=== PATIENT | female | born 1975 | race Caucasian/White ===

== ENCOUNTER 2017-03-24 05:17 | Inpatient (IN) | payer OTHER ==
--- NOTE | 2017-03-22 12:44 | PREOPHP ---
DATE OF ADMISSION: 03/24/2017 HISTORY OF PRESENT ILLNESS: This is a 41-year-old female, 1 para 1. The patient has been seen by me in October of this year due to pelvic pain, lower abdominal pain, an ultrasound showing multiple fibroids. This patient had a history of an ablation but unsuccessful and still with pain and bleeding and very strong bleeding with menometrorrhagia. She has being unable to have intercourse due to pain. She had a history of a bilateral salpingectomy due to Essure applications and endometrial ablation. This patient underwent an ultrasound that had diagnosed her with multiple intramural uterine fibroids, endometrium was not visualized, normal left ovary and right ovary was not visualized. She had been treated with Lupron treatment to decrease the bleeding since she was bleeding so heavily that she was anemic. She was given Lupron injections to decrease the size of the uterus and she had been offered a hysterectomy. She is not interested in having more children. She wants to take care of her bleeding. She does not want this problem to come back in the future, and she had been happy with the injection of Lupron results. She was seeing me and she was advised for a hysterectomy. The patient had a history of no heart disease, no lung disease, no GI, no endocrine disease. She has seasonal allergies. No history of drug addiction. FAMILY HISTORY: For hypertension, breast cancer, strokes and diabetes. PHYSICAL EXAMINATION: GENERAL: Good. VITAL SIGNS: Blood pressure is 120/70, pulse is 80, she is afebrile, and she weighs 156. She is 5 foot 3 inch. HEENT: The head and neck is normal. BREASTS: Soft, nontender, no masses. CHEST: Clear. HEART: Normal sinus rhythm. BACK: Normal. ABDOMEN: Was soft, nontender, no masses. GENITALIA: Normal external genitalia. Normal vagina. Cervix is healthy. Uterus with multiple fibroids, about 10 weeks size, mobilization with prolapse, grade 2-3. Adnexa negative. RECTAL: Examination is normal. DIAGNOSES: 1. Intractable pelvic pain, possible endometriosis. 2. Intractable menometrorrhagia. 3. Multiple fibroid uterus. 4. Uterine prolapse status post endometrial ablation. PLAN: She is undergoing a hysterectomy, vaginal total hysterectomy versus total abdominal hysterectomy. This patient has been advised of the possible risks and possible complications of the procedure with her alternatives and options. Written information was provided. She had no more questions, and agreed to go ahead with the procedure with full understanding and no more questions. Procedure is vaginal total hysterectomy, possible JORDIN. She has been advised of the possible risks and possible complications of the procedure with her alternatives and options. Written information was provided. She had no more questions, and agreed to go ahead with the procedure with full understanding and no more questions. Dictated By: Lyndsey Villanueva MD /ralph/shaina /Document#: [id number]
[2017-03-23 17:16] VITALS: BMI 29.3
[~2017-03-24] VITALS: Ht 160 cm; Wt 74.1 kg
[2017-03-24] VITALS (24 sets, daily range): BP systolic 92–157; BP diastolic 55–89; PULSE 68–98; RESP 16–20; Ht 160 cm; Wt 74.1 kg
[2017-03-24] MEDS ORDERED: CEFAZOLIN 2 GM/50 ML (PMX) 50 ML IVPB ONE (06:00)
[2017-03-24] MEDS ORDERED: DEXTROSE 5%-LR 1,000 ML IV ONE (06:00)
[2017-03-24] MEDS ORDERED: LACTATED RINGER'S 1,000 ML IV SCH (08:00)
[2017-03-24] MEDS ORDERED: METOCLOPRAMIDE 10 MG INJ IV PRN (08:30)
[2017-03-24] MEDS ORDERED: ONDANSETRON 4 MG INJ IV PRN (08:30)
[2017-03-24] MEDS ORDERED: HYDROmorphONE (0.2 MG/ML) 10ML SYG IV PRN ×3 (08:30)
[2017-03-24] MEDS ORDERED: MEPERIDINE 25 MG INJ IV PRN (08:30)
[2017-03-24] MEDS ORDERED: DIPHENHYDRAMINE 50 MG INJ IV PRN (08:30)
[2017-03-24] MEDS ORDERED: BUPIVACAINE 0.25%/EPI (SDV) 30 ML INJ INJ ONE (09:11)
--- NOTE | 2017-03-24 09:58 | HPN ---
Date/Time of Note Date/Time of Note DATE: 03/24/17 TIME: 09:58 Interval H&P Admission Note Pt. seen H&P reviewed: No system changes ASIM KINNEY MD Mar 24, 2017 09:58
[2017-03-24] MEDS ORDERED: HYDROCODONE/APAP (5/325) TAB PO PRN ×2 (10:00)
[2017-03-24] MEDS: KETOROLAC 30 MG INJ IV SCH ×4 (10:00→21:24)
[2017-03-24] MEDS ORDERED: BISACODYL (EC) 5 MG TAB PO PRN (10:00)
[2017-03-24] MEDS ORDERED: ZOLPIDEM 5 MG TAB PO PRN (10:00)
[2017-03-24] MEDS ORDERED: DIPHENHYDRAMINE 50 MG CAP PO PRN (10:00)
--- NOTE | 2017-03-24 10:06 | OPR ---
Date/Time of Note Date/Time of Note DATE: 03/24/17 TIME: 10:02 Operative Report Procedure Date: Mar 24, 2017 Preoperative Diagnosis INTRACTABLE MENOMETRORRHAGIA AND PELVIC PAIN MULTIPLE FIBROID UTERUS POST ABLATION STATUS POSSIBLE ENDOMETRIOSIS Postoperative Diagnosis SAME Operation Performed VAGINAL TOTAL HYSTERECTOMY UTERINE FIBROID MORCELATION Surgeon: ASIM KINNEY MD Regulatory Affairs Specialist: MIKHAIL LOVE MD Anesthesia: general Anesthesiologist: SHEN DOHERTY MD Estimated Blood Loss: 10 - 50 ml's Specimens UTERUS AND FIBROIDS Complications: None Pt Condition Post Procedure: stable Disposition: PACU ASIM KINNEY MD Mar 24, 2017 10:06
[2017-03-24] MEDS: METOCLOPRAMIDE 10 MG TAB PO SCH ×2 (12:06→19:08)
[2017-03-24] MEDS: HYDROmorphONE 1 MG/ML SYG IV PRN ×3 (12:14→19:08)
[2017-03-24] MEDS: LACTATED RINGER'S 1,000 ML IV SCH ×2 (12:32→17:54)
[2017-03-24] MEDS ORDERED: ALBUTEROL/IPRATROPIUM (NEB) 3 ML AMP HHN PRN (13:30)
[2017-03-24] MEDS: CEFAZOLIN 1 GM/50 ML (PMX) 50 ML IVPB SCH ×2 (15:56→21:23)
[2017-03-24] MEDS ORDERED: PROPOFOL 20 ML ONE ×2 (18:03)
[2017-03-24] MEDS ORDERED: SUCCINYLCHOLINE CHLORIDE 100 MG/5 ML SYG IV ONE (18:03)
[2017-03-24] MEDS ORDERED: ONDANSETRON 4 MG INJ ONE (18:03)
[2017-03-24] MEDS ORDERED: CEFAZOLIN 1 GM INJ ONE (18:03)
[2017-03-24] MEDS ORDERED: morphine SULFATE/PF (10 MG/10 ML) INJ ONE (18:03)
[2017-03-24] MEDS ORDERED: BUPIVACAINE 0.25%/EPI (SDV) 30 ML INJ ONE (18:03)
[2017-03-24] MEDS ORDERED: MIDAZOLAM 1 MG/ML 2 ML INJ ONE (18:03)
[2017-03-24] MEDS ORDERED: KETOROLAC 30 MG INJ ONE (18:03)
[2017-03-24] MEDS ORDERED: FENTAnyl 50 MCG/ML VIAL ONE (18:03)
[2017-03-24] MEDS ORDERED: METOCLOPRAMIDE 10 MG INJ ONE (18:03)
[2017-03-24] MEDS ORDERED: THROMBIN 5000 UNIT VIAL ONE (18:03)
[2017-03-25] MEDS: LACTATED RINGER'S 1,000 ML IV SCH ×2 (00:05→08:28)
[2017-03-25] MEDS: METOCLOPRAMIDE 10 MG TAB PO SCH ×5 (00:05→22:40)
[2017-03-25] MEDS: KETOROLAC 30 MG INJ IV SCH ×4 (04:01→22:40)
[2017-03-25] MEDS: CEFAZOLIN 1 GM/50 ML (PMX) 50 ML IVPB SCH (05:07)
[2017-03-25 05:31] LABS: BASOPHILS % 0.2 % (0.0-2.0); EOSINOPHILS % 0.1 % (0.0-7.0); HEMATOCRIT 35.6 % (37.0-47.0); HEMOGLOBIN 11.8 g/dl (12.0-16.0); LYMPHOCYTES # 2.2 10^3/ul (0.8-2.9); LYMPHOCYTES % 21.2 % (15.0-51.0); MEAN CORPUSCULAR HEMOGLOBIN 29.1 pg (29.0-33.0); MEAN CORPUSCULAR HGB CONC 33.1 g/dl (32.0-37.0); MEAN CORPUSCULAR VOLUME 87.7 fl (82.0-101.0); MEAN PLATELET VOLUME 10.8 fl (7.4-10.4); MONOCYTE # 0.9 10^3/ul (0.3-0.9); MONOCYTES % 8.6 % (0.0-11.0); NEUTROPHIL # 7.4 10^3/ul (1.6-7.5); NEUTROPHILS % 69.6 % (39.0-77.0); PLATELET COUNT 178 10^3/UL (140-415); RED BLOOD COUNT 4.06 10^6/ul (4.20-5.40); RED CELL DISTRIBUTION WIDTH 12.9 % (11.5-14.5); WHITE BLOOD COUNT 10.6 10^3/ul (4.8-10.8)
[2017-03-25 06:27] LABS: CREATININE 0.79 mg/dl (0.44-1.00); POTASSIUM 4.8 mmol/L (3.5-5.1)
--- NOTE | 2017-03-25 07:37 | OPR ---
DATE OF OPERATION: 03/26/2017 OPERATIVE PROCEDURE: Vaginal hysterectomy, uterine fibroids morcellation. PREOPERATIVE DIAGNOSIS: 1. Intractable menometrorrhagia. 2. Pelvic pain. 3. Anemia. 4. Multiple fibroid uterus post ablations status possible endometriosis. POSTOPERATIVE DIAGNOSIS: Same. SURGEON: Surgeon: Dr. Villanueva. Customer Loyalty Representative: Dr. More ANESTHESIA: Dr. Young, with general. OPERATION PERFORMED: The patient was given general anesthesia and placed in the lithotomy position. The perineal vaginal area was prepped and draped. A vaginal speculum was applied. The cervix was held with a Susu clamp and a circular incision was made around the cervix after injection of xylocaine and epinephrine at the cervical vaginal junction. The anterior cul- de-sac was found in the posterior cul-de-sac was found. The cardinal ligaments, uterosacral ligaments were clamped, cut, and tied with number 1 Vicryl and held. The uterine vessels were localized and clamped with the ligature instrument, burned and cut. At the level of the left side of the uterus multiple fibroids were felt. The adnexal pedicle was clamped, cut and ligated with number 1 Vicryl and held. On the right side of the uterine fundus, she appears to have a very large fibroid that was imbedded in the round ligament. The fibroid was approximately 10 cm. The flow progress with the ligature was done to get the uterine vessels first and then the then the morcellation of fibroids were done first posteriorly where a few pieces of the fibroids were removed, and then anteriorly were from the same area of small pieces of the fibroids where very careful morcellation was done. Finally at the level of the broad ligament the rest of the fibroid was removed carefully with multiple pieces. The adnexal pedicle was clamped, cut, and tied with number 1 Vicryl. There was no active bleeding. The area was visualized under very good light and there was no active bleeding. Both ovaries were felt normal, with a tiny follicular cysts on the right side. The left ovary was higher. There was no tubes from previous history and the peritoneal incision was done with a 2-0 Vicryl with an 0 Vicryl suture and then the pedicles were tied to the ipsilateral side and brought out through the vaginal mucosa anteriorly and posteriorly, and the vaginal mucosa was closed with interrupted sutures with number 0 Vicryl. The hemostasis was good. Blood loss was approximately less than 20 cc. Surgicel had been applied as well as Surgiflo. The patient is tolerated the procedure well and left the OR awake and stable. Sponge count, instrument counts were correct. Intravenous antibiotics were given for prophylaxis. Blood loss, as I said less than 20 cc, and the urine was clear at the end of the procedure. A Knight catheter was now applied with clear urine and Xeroform gauze. The patient and was sent to the PACU. Dictated By: Lyndsey Villanueva MD /ralph/ /Document#: [id number]
[2017-03-25 07:50] VITALS: BP 87/51; RESP 18
[2017-03-25 08:11] VITALS: BP 117/71; RESP 18
--- NOTE | 2017-03-25 10:53 | PN ---
Date/Time of Note Date/Time of Note DATE: 03/25/17 TIME: 10:49 Assessment/Plan Lines/Catheters IV Catheter Type (from Nrsg): Peripheral IV Fuller in Place (from Nrsg): Yes Subjective 24 Hr Interval Summary doing well, feels good able to eat and not be nauseated fuller and packing removed. afebrile passing gases. encouraged ambulation. advise about surgical findings. patient is grateful Constitutional: BM, ambulates, flatus, improved, no complaints, urine output Feeding: advancing diet Pain Control: well controlled Detailed Summary Eyes: no complaints ENT: no complaints Respiratory: no complaints Cardiovascular: no complaints Gastrointestinal: no complaints Genitourinary: no complaints Musculoskeletal: no complaints Skin: no complaints Neurologic: no complaints Endocrine: no complaints Lymphatic: no complaints Psychological: nl mood/affect, no complaints Immunologic: no complaints Exam/Review of Systems Vital Signs Vitals Vital Signs Date Time Temp Pulse Resp B/P Pulse Ox O2 Delivery O2 Flow Rate FiO2 03/25/17 10:28 99.2 03/25/17 08:11 92 18 117/71 97 03/24/17 14:43 21 03/24/17 12:30 Room Air 03/24/17 09:59 8.0 Intake and Output 03/24/17 03/24/17 03/25/17 15:00 23:00 07:00 Intake Total 2900 ml 450 ml 1970 ml Output Total 70 ml 800 ml 2500 ml Balance 2830 ml -350 ml -530 ml Exam Constitutional: alert, oriented, well developed Psych: nl mood/affect, no complaints Head: atraumatic, normocephalic Eyes: EOMI, nl conjunctiva, nl lids, nl sclera ENMT: mucosa pink and moist, nl external ears & nose, nl lips & teeth, nl nasal mucosa & septum Neck: non-tender, supple Respiratory: clear to auscultation, normal air movement Cardiovascular: nl pulses, regular rate and rhythm Gastrointestinal: nl liver, spleen, non-tender, soft Musculoskeletal: nl extremities to inspection, nl gait and stance Extremities: normal pulses Neurological: KEG FILLER II-XII intact, nl mental status, nl speech, nl strength Skin: nl turgor, rash or lesions Lymph: nl lymph nodes Results Result Diagram: 03/25/17 0455 03/25/17 0455 ASIM KINNEY MD Mar 25, 2017 10:53
--- NOTE | 2017-03-25 13:45 | PN ---
Date/Time of Note Date/Time of Note DATE: 03/25/17 TIME: 13:43 Assessment/Plan VTE Prophylaxis VTE Prophylaxis Intervention: ambulation Lines/Catheters IV Catheter Type (from Nrsg): Peripheral IV Urinary Cath still in place: No Subjective 24 Hr Interval Summary Free Text/Dictation Anesthesia Note A 41 year female s/p spinal/duramorph, GA POD #1 is doing fine . pain is controlled, no N/V, itching, kaycee pain, headache. kaycee is clean. care per surgery Exam/Review of Systems Vital Signs Vitals Vital Signs Date Time Temp Pulse Resp B/P Pulse Ox O2 Delivery O2 Flow Rate FiO2 03/25/17 10:28 99.2 03/25/17 08:11 92 18 117/71 97 03/24/17 14:43 21 03/24/17 12:30 Room Air 03/24/17 09:59 8.0 Intake and Output 03/24/17 03/24/17 03/25/17 15:00 23:00 07:00 Intake Total 2900 ml 450 ml 1970 ml Output Total 70 ml 800 ml 2500 ml Balance 2830 ml -350 ml -530 ml Results Result Diagram: 03/25/17 0455 03/25/17 0455 Results 24 hrs Laboratory Tests Test 03/25/17 04:55 03/25/17 05:26 White Blood Count 10.6 Red Blood Count 4.06 L Hemoglobin 11.8 L Hematocrit 35.6 L Mean Corpuscular Volume 87.7 Mean Corpuscular Hemoglobin 29.1 Mean Corpuscular Hemoglobin Concent 33.1 Red Cell Distribution Width 12.9 Platelet Count 178 Mean Platelet Volume 10.8 H Neutrophils % 69.6 Lymphocytes % 21.2 Monocytes % 8.6 Eosinophils % 0.1 Basophils % 0.2 Nucleated Red Blood Cells % 0.0 Neutrophils # 7.4 Lymphocytes # 2.2 Monocytes # 0.9 Eosinophils # 0.0 Basophils # 0.0 Nucleated Red Blood Cells # 0.0 Sodium Level 140 Potassium Level 4.8 Chloride Level 101 Carbon Dioxide Level 29 Anion Gap 15 Blood Urea Nitrogen 4 L Creatinine 0.79 Lab Scanned Report LAB Medications Medications Current Medications Zolpidem Tartrate (Ambien) 10 mg HS PRN PO INSOMNIA; Start 03/24/17 at 10:00 Metoclopramide HCl (Reglan) 10 mg Q6 PO Last administered on 03/25/17 13:05; Admin Dose 10 MG; Start 03/24/17 at 12:00 Simethicone (Mylicon) 160 mg Q6 PO Last administered on 03/25/17 13:05; Admin Dose 160 MG; Start 03/24/17 at 12:00 Bisacodyl (Dulcolax) 10 mg DAILY PRN PO CONSTIPATION; Start 03/24/17 at 10:00 Hydromorphone HCl (Dilaudid) 1 mg Q4H PRN IV PAIN Last administered on 15:55; Admin Dose 1 MG; Start 03/24/17 at 10:00 Acetaminophen/ Hydrocodone Bitart ([place] (5/325)) 1 tab Q6H PRN PO PAIN LEVEL 4 -6; Start 03/24/17 at 10:00 Acetaminophen/ Hydrocodone Bitart ([place] (5/325)) 2 tab Q6H PRN PO PAIN LEVEL 7 -10; Start 03/24/17 at 10:00 Ketorolac Tromethamine (Toradol) 30 mg Q6H IV Last administered on 03/25/17 10 :29; Admin Dose 30 MG; Start 03/24/17 at 10:00; Stop 03/27/17 at 09:59 Diphenhydramine HCl (Benadryl) 50 mg Q6H PRN PO ITCHING; Start 03/24/17 at 10: 00 SHEN DOHERTY MD Mar 25, 2017 13:45
[2017-03-25 19:58] VITALS: BP 118/73; RESP 20
[2017-03-26] MEDS: METOCLOPRAMIDE 10 MG TAB PO SCH (04:59)
[2017-03-26] MEDS: KETOROLAC 30 MG INJ IV SCH ×2 (04:59→09:51)
[2017-03-26 07:00] VITALS: BP 123/69; RESP 20
--- NOTE | 2017-03-26 10:28 | PD.PPDC ---
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
--- NOTE | 2017-03-26 14:38 | DS ---
DATE OF ADMISSION: 03/24/2017 DATE OF DISCHARGE: 03/26/2017 HISTORY OF PRESENT ILLNESS: The patient came in for a hysterectomy on 03/24/2017 and is being discharged on 03/26/2017. The patient had a vaginal hysterectomy due to a intractable pelvic pain, intractable bleeding that came from the large fibroid that she had. She had 3 doses of Lupron. She is a 41 years old female, multigravida, with a long-standing history of abnormal bleeding, pelvic pain, anemia, menometrorrhagia, and she was given the injections of Lupron to reduce the size of the uterus to be able to do a vaginal procedure and do a surgical procedure that is less aggressive. The patient was advised that the possibility of a JORDIN was going to be there in case I have difficulty removing the uterus vaginally. HOSPITAL COURSE: I was successful removing the uterus vaginally with morcellation of the uterus, and she did very well postoperatively, she was ambulatory. She was tolerating diet and she was controlling her pain with p.o. medication. She was having a bowel movement and passing gas. She was afebrile and ambulatory and her laboratory testing was near normal. The patient was discharged home on her 2nd postoperative day, with further instructions of seeing me in the office if she has any problems. She was discharged in good condition and stable. FOLLOWUP: Instructions of seeing me if she has any problems. DISCHARGE CONDITION: She was discharged in stable and good condition. Dictated By: Lyndsey Villanueva MD /ralph/eva /Document#: [id number]
== END 2017-03-26 13:10 | disposition home or self-care (01) | DRG 743 ==
LOC: REC 05:17 → MS1 10:55
PROVIDERS: ADMIT Obstetrics & Gynecology; ATTEND Obstetrics & Gynecology
PROC: 0UTC7ZZ Resection of Cervix, Via Natural or Artificial Opening (ICD-10-PCS; 2017-03-24)
PROC: 0U8 Female Reproductive System, Division (ICD-10-PCS; 2017-03-24)
PROC: 0UT97ZZ Resection of Uterus, Via Natural or Artificial Opening (ICD-10-PCS; principal; 2017-03-24 07:30)
DX: D25.1 Intramural leiomyoma of uterus (principal); D25.2 Subserosal leiomyoma of uterus; N92.1 Excessive and frequent menstruation with irregular cycle; N80.0 Endometriosis of uterus; N72 Inflammatory disease of cervix uteri; N81.4 Uterovaginal prolapse, unspecified
CPT/HCPCS: 80051; 82565; 84520; 85025; 86850; 86900; 86901; 86920; 87086; 88305; 94664; J0690; J1170; J1885; J2250; J2274; J2405; J2765; J3010; J7120; J7999